=== PATIENT | male | born 1940 | race Caucasian/White ===

== ENCOUNTER → 2017-05-28 | Outpatient (CLI) | payer OTHER ==
--- NOTE | 2017-06-01 13:23 | SLEEPCENT ---
DATE OF PROCEDURE: 05/28/2017 ORDERED BY: Marsha Culver Nocturnal polysomnography was performed due to concern for the obstructive sleep apnea syndrome. 8 hours and 49 minutes of data were reviewed. There were 452 minutes of sleep identified. Sleep latency was short at 4.5 minutes. Rapid eye movement (REM) was short at 72 minutes. Sleep architecture was fair with 5 REM periods appreciated. There was significant fragmentation, however. Sleep progression was impaired. Overall sleep efficiency was good at 86.5%. The patient's EKG showed atrial fibrillation with a controlled ventricular response rate of 55 beats per minute. Range of ventricular rate 40-80. EEG showed fairly normal waveforms for awake and sleep. No focal events were identified. There were 296 respiratory events identified of 10 seconds in duration or greater for an apnea hypopnea index of 39.2. The events were primarily obstructive, though mixed nondistended central apneas were seen. The events were not exclusive to sleep stage nor body posture. Arousals from respiratory events occurred 10.3 times per hour and oxygen desaturations were seen into the 80s. There was some limb activity noted, but arousals from limb events were few. IMPRESSION: Severe obstructive sleep apnea syndrome (G47.33). Apnea hypopnea index 39.2. RECOMMENDATION: The patient should be encouraged to return to the sleep disorder center for pressure therapy. In the interim, alcohol and sedative avoidance should be practiced and caution exercised during the operation of motor vehicles.
== END ==
LOC: M SLEEP 18:56
PROVIDERS: ATTEND Family Medicine
DX: G47.33 Obstructive sleep apnea (adult) (pediatric) (principal)